=== PATIENT | female | born 1935 | race Caucasian/White ===

== ENCOUNTER 2017-08-08 10:34 | Observation (INO) ==
--- NOTE | 2017-08-08 11:16 | Emergency Department Note ---
Arrival - Arrival Chief Complaint: Shortness of Breath Stated Complaint: sob,numbess,swelling of stomach,diahrea,n/v ED Nursing Triage Note: PT C/O SHORTNESS OF BREATH AND WEAKNESS SINCE TUESDAY WITH INTERMITTENT N/V. Mode of Arrival: Wheelchair Limitations: No Limitations Source: Patient Time Seen by Provider: 08/08/17 11:12 - History of Present Illness HPI Narrative: This 82-year-old white female presents with a history of 4 days of stomach upset characterized by intense nausea and vomiting 4 days ago followed by the last several days of loose bowel movements. She denies any bright red blood, melena, or abdominal cramping with this. She does complain of increased shortness of breath, dyspnea on exertion, orthopnea, and generalized weakness. What precipitated her visit today however was left-sided numbness of the upper extremity with some cramping in the hand as well as questionable sensation of numbness of the left face. The patient has a significant cardiac history with 2 stents but denies any chest pain, diaphoresis, or palpitations in association with this. She denies any history of stroke. Currently she is in no acute distress medically at rest. Onset (ago): day(s) (Patient presents 4 days post onset of symptoms) Allergies/Adverse Reactions: Allergies Allergy/AdvReac Type Severity Reaction Status Date / Time Penicillins Allergy Severe RASH Verified 08/08/17 10:49 tape Allergy Unknown/Unable Uncoded 08/08/17 10:49 to obtain Home Medications: Home Medications Medication Instructions Recorded Confirmed Type Furosemide Tab [Lasix Tab] 20 mg PO DAILY 03/19/16 11/17/16 History Metoprolol Succinate Xl [Toprol Xl] 25 mg PO BID 03/19/16 11/17/16 History raNITIdine HCl [Ranitidine HCl] 300 mg PO BID 03/19/16 11/17/16 History Benzonatate 100 mg PO TID 11/15/16 11/17/16 History HYDROcodone/ACETAMIN 5-325 [Roy 1 tablet PO Q6H #30 tablet 11/15/16 11/17/16 Rx 5-325] Timolol Maleate [Timolol 0.5% Oph 1 drop BOTH EYES DAILY 11/15/16 11/17/16 History Soln] Albuterol Neb [Proventil Neb] 1.25 mg RESP TX RT Q4H #1 11/19/16 Rx nebulization solution Albuterol Sulfate [Ventolin HFA] 2 puff INH Q4HR #1 inhaler 11/19/16 Rx Aspirin Chew Tab 81 mg PO DAILY #30 tablet 11/19/16 Rx Codeine Phosphate/Guaifenesin 10 ml PO DIRECTED #1 liquid 11/19/16 Rx [Guaifenesin-Codeine Syrup] Levofloxacin Tab [Levaquin Tab] 500 mg PO DAILY #7 tablet 11/19/16 Rx Review of System - Review of System 12 point system: reviewed and no additional remarkable complaints except as stated - Review of System Constitutional: Present: as per HPI Respiratory: Present: as per HPI Cardiovascular: Present: as per HPI Gastrointestinal: Present: as per HPI Neurological: Present: as per HPI Medical,Surgical,& Family Hx - Medical History Cardio: History of: CAD, Hypertension, [place] (stents in 2013) Neurology: No history of: Seizures HEENT: History of: Glaucoma Endocrine: No history of: Diabetes Mellitus (NIDDM) Respiratory: History of: Bronchitis Musculoskeletal: History of: Back/Neck Problems, Degenerative Disk Disease, Musculoskeletal Problems (back surgery) No history of: Amputation Hematology: History of: Anemia - Surgical History Cardiac Surgeries: Sugical HX of: Cardiac Catheterization (STENT X2) Abdominal Surgeries: Patient denies: Abdominal Surgery Reproductive Surgeries: Surgical HX of;: Hysterectomy (1970) - Family History Family History: Reports;: Family Anesthesia Reaction (self), Family Heart Disease (both parents) - Social History Smoking Status: Never smoker Frequency of Alcohol Use: None Type of Drug Use: None Exam Physical Examination: GENERAL: Well developed, well nourished elderly white female in no acute distress. HEENT: Normocephalic. No trauma. Moist mucous membranes. EOMI. PERRLA. ENT NML NECK: Supple. No adenopathy. CARDIAC: Regular. No murmurs. Heart rate 59 CHEST: Clear to auscultation. No respiratory distress. O2 sat 99% ABDOMEN: Soft. Nontender. Hyperactive bowel sounds. EXTREMITIES: No trauma. Normal ROM. No pedal edema. SKIN: No diaphoresis. No rash. NEURO: Alert. Neuro intact. No focal deficits. Vital Signs: Vital Signs Temperature 97.9 F 08/08/17 11:32 Pulse Rate 59 L 08/08/17 11:32 Respiratory Rate 18 08/08/17 11:38 Blood Pressure 165/52 08/08/17 11:32 O2 Sat by Pulse Oximetry 99 08/08/17 10:47 Course - Reevaluation(s) Reevaluation #1: Discussed with patient the fact that she is exhibiting symptoms of congestive failure complicating her gastroenteritis which warrants admission for diuresis and monitoring. - Consultations Consultation #1: Discussed with hospitalist service who will admit for further evaluation treatment. Results - Labs CBC & BMP: 08/08/17 11:23 08/08/17 11:23 Labs: I reviewed the lab and noted the depressed hematocrit. Also noted was negative cardiac enzymes with very elevated BNP. - Impressions EKG: Sinus rhythm with first-degree AV block at heart rate of 60 but normal QRS. Nonspecific ST changes with no acute injury pattern noted. - Diagnostic Findings Procedure: CT: image reviewed by me, report reviewed by me (Head: Microvascular ischemia as well as cerebral atrophy. Chronic left occipital infarct noted) Disposition Clinical Impression: Congestive heart failure, Gastroenteritis Case discussed with: patient, patient's family Disposition: Still a Patient Condition: Stable Time of Disposition: 12:46
[2017-08-08 11:34] LABS: Basophils # 0.2 10*3/uL (0.0-0.2); Basophils % 1.6 % (0.0-0.8); Eosinophils # 0.3 10*3/uL (0.0-0.87); Eosinophils % 2.8 % (0.00-10.9); Hematocrit 28.2 VOL% (35.7-47.0); Hemoglobin 9.3 GM/DL (12.0-16.0); Immature Granulocytes % 12.8 %; Immature Granulocytes Absolute 1.21 #; Lymphocytes # 1.1 10*3/uL (1.4-4.0); Lymphocytes % 11.1 % (21.3-54.2); Mean Corpuscular Hemoglobin 30 PG (27-34); Mean Corpuscular Volume 92.2 FL (87-102); Mean Platelet Volume 12.6 FL (9.6-12.0); Monocytes # 1.1 10*3/uL (0.11-0.8); Monocytes % 11.1 % (1.7-12.7); NRBC # 0.26 10*3/uL; Neutrophils # 5.8 10*3/uL (1.4-7.4); Neutrophils % 60.6 % (38.7-73.9); Platelet Count 433 T/CUMM (130-400); Red Blood Count 3.06 MC/CUMM (3.8-5.5); Red Cell Distribution Width 23.7 % (9.3-17.3); White Blood Count 9.5 T/CUMM (4-12)
--- NOTE | 2017-08-08 11:43 | CT Report ---
Referring physician: Jose Kelley Exam: CT brain without contrast Date: 08/08/2017 Comparison: None Reason: Left-sided numbness Technique: Axial images of the head were obtained without the use of contrast. Total DLP was 1012.10 mGy*cm. Findings: No hydrocephalus or midline shift is present. There is no evidence of an acute infarction, recent intracranial hemorrhage or abnormal mass effect. Diffuse atrophy and cerebral hypodensities with probable 10 mm chronic infarct in the left occipital lobe. Arterial calcifications are noted. The osseous structures appear intact. The mastoid air cells and visualized paranasal sinuses are clear. Impression: No acute intracranial abnormality is identified. Cerebral atrophy with microvascular disease and probable chronic left occipital lobe infarct. The CT exam was performed using one or more of the following dose reduction techniques: Automated exposure control and adjustment of the mA and/or kV according to patient size. PROCEDURE INTERPRETED AT [facility] DEPARTMENT OF RADIOLOGY Final Report Signed by: Dr. Nely Smith
[2017-08-08 11:44] LABS: Apearance,Urine CLEAR (Clear); Bilirubin,Urine Negative (Negative); Blood, Urine Negative (Negative); Glucose,Urine (UA) Negative (Negative); Ketones,Urine Negative (Negative); Nitrite,Urine Negative (Negative); Protein,Urine Negative; Squamous Epithelial Cell,Urine Occasional /HPF (0-10); Urine Color Straw (Yellow); Urine Specific Gravity 1.005 (1.001-1.035); Urine Urobilinogen < 2.0 EU/DL (0.2-1.0); WBC,Urine <1 /HPF (0-6)
[2017-08-08 11:45] LABS: PT Patient Result 10.6 SECS; Partial Thromboplastin Time 30.8 SECS (0-40)
--- NOTE | 2017-08-08 11:48 | XRay Report ---
Portable chest Date: 08/08/2017 Clinical history: Shortness of breath Comparison: 11/17/2016 Technique: Portable AP sitting chest Findings: Persistent cardiomegaly with arterial calcifications. Calcified granulomata/nodes are noted with no significant change in the appearance of the lungs, mediastinum, or osseous structures. Degenerative changes are noted. Impression: Persistent cardiomegaly with chronic scarring in the lungs. PROCEDURE INTERPRETED AT [facility] DEPARTMENT OF RADIOLOGY Final Report Signed by: Dr. Nely Smith
[2017-08-08 12:07] LABS: Band Neutrophils 3 % (0-10); Elliptocytes 1+; Hypochromasia 1+; Lymphocytes 13 % (20-55); Macrocytosis 2+; Nucleated Red Blood Cells 1 (0-5); Polychromasia 1+; Segmented Neutrophils 76 % (50-85); Target Cells Slight; Total Cells Counted 100
[2017-08-08 12:08] LABS: Basophilic Stippling 1+; Giant Platelets Few; Platelet Estimate Increased
[2017-08-08] MEDS ORDERED: FUROSEMIDE 40 MG/4 ML VIAL IV STA (12:11)
[2017-08-08] MEDS ORDERED: ALBUTEROL 2.5 MG/3 ML NEB RESP TX STA (12:12)
[2017-08-08 12:16] LABS: Albumin 4.2 G/DL (3.4-5.0); Bilirubin,Total 0.8 MG/DL (0.2-1.0); Calcium 8.7 MG/DL (8.5-10.1); Total Protein 6.9 G/DL (6.4-8.3)
[2017-08-08 12:17] LABS: Osmolality,Calculated 267.5 MOS/KG (273-304); Potassium 4.9 MMOL/L (3.5-5.1)
[2017-08-08] MEDS ORDERED: ALBUTEROL 2.5 MG/3 ML NEB RESP TX ONE (12:19)
[2017-08-08] MEDS ORDERED: FUROSEMIDE 40 MG/4 ML VIAL ONE (12:27)
--- NOTE | 2017-08-08 14:05 | Order Completion Report ---
See report scanned to EMR
--- NOTE | 2017-08-08 14:30 | Hospitalist History & Physical ---
<Lolly Willingham - Last Filed: 08/08/17 13:36> Assessment and Plan - Time spent with patient Time spent with patient: Greater than 30 minutes (1) Acute on chronic systolic CHF (congestive heart failure) Status: Acute Assessment and plan: Admit - 08/08/17 CHF-(BNP 674) - continue diuretics Lasix 4o IV daily PRN duonebs repeat a.m. labs further recommendations to follow per Dr Pérez. Current Visit: No (2) SOB (shortness of breath) Status: Acute Current Visit: No (3) Dyslipidemia Status: Chronic Current Visit: No History of Present Illness Chief complaint: shortness of breath, N/V History of present illness: Ms. Ewing is a 82 year old white female w/PMHx irregular heartbeat (AFib), HTN, Cardiac Stents, Arthritis, Glaucoma, chronic back pain presented to the ED for further evaluation of shortness of breath with exertion, nausea, vomiting since Tuesday. She reports feeling bloated x3 days. She denies having early satiety. She reports purposefully loosing 20 pounds since April by dieting. She denies any abdominal tenderness. She reports this morning an episode of numbness in the middle of her left hand but it has now resolved. Denies stroke hx. She denies headaches. She denies fever, chills, cough, chest pain or tightness. IN ED: H&H 9.3 & 28.2. PLT 433. D-Dimer negative. Sodium 132, BUn 21. Glucose 109. BNP 674. Urinalysis negative for infection. CXR: persistent cardiomegaly with chronic scarring in lungs. Head CT: nothing acute; cerebral atrophy with microvascular disease and probable chronic left occipital lobe infarct. Hospital medicine consulted for admission for SOB, left hand numbness, abdominal distention, nausea, and vomiting. Start IV fluids. PRN anti-emetics, Diuretics, PRN duonebs. PCP: Dr Singh [employer] Operator: Dr Gonzalez Glaucoma: Dr Carlisle After discussion with Dr Kelley in ED and Dr Pérez with Hospital Medicine, it was agreed to admit patient for further evaluation. Home medications to be reviewed and reconciliation to follow. Home Medications Medication Instructions Recorded Confirmed Type Furosemide Tab [Lasix Tab] 40 mg PO DAILY 03/19/16 08/08/17 History Metoprolol Succinate Xl [Toprol Xl] 25 mg PO BID 03/19/16 08/08/17 History raNITIdine HCl [Ranitidine HCl] 300 mg PO BID 03/19/16 08/08/17 History Timolol Maleate [Timolol 0.5% Oph 1 drop BOTH EYES DAILY 11/15/16 08/08/17 History Soln] Aspirin Chew Tab 81 mg PO DAILY #30 tablet 11/19/16 08/08/17 Rx Apixaban [Eliquis] 2.5 mg PO BID 08/08/17 08/08/17 History Lisinopril 20 mg PO BID 08/08/17 08/08/17 History Sotalol HCl [Sotalol] 80 mg PO BID 08/08/17 08/08/17 History Allergies Allergy/AdvReac Type Severity Reaction Status Date / Time Penicillins Allergy Severe RASH Verified 08/08/17 10:49 tape Allergy Unknown/Unable Uncoded 08/08/17 10:49 to obtain Medical,Surgical,& Family Hx - Medical History Cardio: History of: CAD, Hypertension, [place] (stents in 2013) Neurology: No history of: Seizures HEENT: History of: Glaucoma Endocrine: No history of: Diabetes Mellitus (NIDDM) Respiratory: History of: Bronchitis Musculoskeletal: History of: Back/Neck Problems, Degenerative Disk Disease, Musculoskeletal Problems (back surgery) No history of: Amputation Hematology: History of: Anemia - Surgical History Cardiac Surgeries: Sugical HX of: Cardiac Catheterization (STENT X2) Abdominal Surgeries: Patient denies: Abdominal Surgery Reproductive Surgeries: Surgical HX of;: Hysterectomy (1971) - Family History Family History: Reports;: Family Anesthesia Reaction (self), Family Heart Disease (both parents) - Social History Smoking Status: Never smoker Frequency of Alcohol Use: None Type of Drug Use: None Marital Status: Lives With:: Spouse Functional capacity: independent ambulation 12 point system: reviewed and no additional remarkable complaints except as stated - Constitutional Constitutional: Present: fatigue, weight loss (pur). Absent: chills, fever(s), headache(s) - Cardiovascular Cardiovascular: Present: dyspnea on exertion. Absent: chest pain at rest, chest pain with activity - Respiratory Respiratory: Present: dyspnea on exertion. Absent: cough - Gastrointestinal Gastrointestinal: Present: loose stools. Absent: abdominal pain, coffee ground emesis - Genitourinary Genitourinary: Absent: difficulty urinating, dysuria - Neurological Neurological: Present: numbness (middle of hand that has resolved upon time of exam). Absent: abnormal speech, frequent falls Exam - Constitutional Vitals: Period Temp Pulse Resp BP Sys/Alves Pulse Ox Last 24 Hr 97.9 F-97.9 F 59-59 16-18 165-165/52-52 99 General appearance: normal weight, no acute distress - Head Head exam: Present: normal inspection - Eye Eye exam: Present: EOMI Pupils: Present: SHANNA - Neck Neck exam: Present: normal inspection - Respiratory Respiratory exam: Present: clear to auscultation bilaterally. Absent: rales, rhonchi, stridor, wheezes - Cardiovascular Cardiovascular exam: Present: regular rate and rhythm - GI/Abdominal GI/Abdominal exam: Present: normal bowel sounds, distended, soft. Absent: firm , tenderness, rebound - Extremities Exam Extremities exam: Present: normal inspection, full ROM. Absent: edema - Neurological Exam Neurological exam: Present: alert, oriented X3, CN II-XII intact - Psychiatric Psychiatric exam: Present: normal affect, normal mood. Absent: agitated, anxious - Skin Skin exam: Present: normal color, warm, dry Results - Labs CBC & BMP: 08/08/17 11:23 08/08/17 11:23 Lab Results: I have reviewed the past 24 hour labs - Diagnostic Findings Procedure: Chest x-ray: report reviewed by me (persistent cardiomegaly with chronic scarring in the lungs), CT: report reviewed by me (Head: NO Acute intracranial abnormality, cerebral atrophy with microvascular disease and probable chronic left occipital lobe infarct) <Grace Pérez - Last Filed: 08/08/17 18:32> History of Present Illness History of present illness: Patient seen and examined independently of HEMATOLOGIST ONCOLOGIST Willingham, agree with history, assessment and plan as documented. Presents with sob and abdominal swelling. Reports that this is usually where her chf swelling is. Will start IV lasix. Exam - Constitutional Vitals: Period Temp Pulse Resp BP Sys/Alves Pulse Ox Last 24 Hr 97.3 F-98.1 F 56-61 16-19 118-165/49-60 96-100 Results - Labs CBC & BMP: 08/08/17 11:23 08/08/17 11:23
[2017-08-08] MEDS ORDERED: MAGNESIUM SULF RIDER 2 GM in PREMIX 1 EACH IV PRN (14:56)
[2017-08-08] MEDS ORDERED: MAGNESIUM SULF RIDER 4 GM in PREMIX 1 EACH IV PRN (14:56)
[2017-08-08] MEDS ORDERED: ALBUTEROL/IPRATROPIUM 3 ML NEB RESP TX PRN (18:10)
[2017-08-08] MEDS: LISINOPRIL 20 MG TABLET PO SCH (21:26)
[2017-08-08] MEDS: APIXABAN 2.5 MG TABLET PO SCH (21:26)
[2017-08-08] MEDS: SOTALOL 80 MG TABLET PO SCH (21:30)
[2017-08-09 06:59] LABS: Basophils # 0.1 10*3/uL (0.0-0.2); Basophils % 2.1 % (0.0-0.8); Eosinophils # 0.2 10*3/uL (0.0-0.87); Eosinophils % 2.7 % (0.00-10.9); Hematocrit 25.9 VOL% (35.7-47.0); Hemoglobin 8.6 GM/DL (12.0-16.0); Immature Granulocytes % 12.1 %; Immature Granulocytes Absolute 0.76 #; Lymphocytes # 0.7 10*3/uL (1.4-4.0); Lymphocytes % 10.7 % (21.3-54.2); Mean Corpuscular HGB Conc 33.2 GM/DL (32-36); Mean Corpuscular Hemoglobin 31 PG (27-34); Mean Corpuscular Volume 92.5 FL (87-102); Mean Platelet Volume 12.3 FL (9.6-12.0); Monocytes # 0.7 10*3/uL (0.11-0.8); Monocytes % 10.8 % (1.7-12.7); NRBC # 0.19 10*3/uL; Neutrophils # 3.9 10*3/uL (1.4-7.4); Neutrophils % 61.6 % (38.7-73.9); Platelet Count 349 T/CUMM (130-400); Red Cell Distribution Width 23.7 % (9.3-17.3); White Blood Count 6.3 T/CUMM (4-12)
--- NOTE | 2017-08-09 07:19 | Order Completion Report ---
See report scanned to EMR
[2017-08-09 07:40] LABS: Calcium 8.3 MG/DL (8.5-10.1); Potassium 4.4 MMOL/L (3.5-5.1)
[2017-08-09 07:55] LABS: Anisocytosis 2+; Band Neutrophils 30 % (0-10); Eosinophils 2 % (0-10); Lymphocytes 10 % (20-55); Metamyelocytes 2 %; Poikilocytosis 3+; Segmented Neutrophils 51 % (50-85); Total Cells Counted 100
[2017-08-09 07:57] LABS: Ovalocytes 1+
[2017-08-09] MEDS: APIXABAN 2.5 MG TABLET PO SCH (08:56)
[2017-08-09] MEDS: LISINOPRIL 20 MG TABLET PO SCH (08:56)
[2017-08-09] MEDS: SOTALOL 80 MG TABLET PO SCH (08:56)
[2017-08-09] MEDS: FUROSEMIDE 40 MG/4 ML VIAL IV SCH ×2 (08:57→15:46)
[2017-08-09] MEDS ORDERED: TIMOLOL 0.5% OPH SOLN 5 ML BOTTLE BOTH EYES SCH (09:00)
[2017-08-09] MEDS ORDERED: ASPIRIN CHEW 81 MG TABLET PO SCH (09:00)
[2017-08-09 11:47] VITALS: BP 106/42
--- NOTE | 2017-08-09 13:29 | Cardiology Consult Note ---
History of Present Illness - Data of Consult Patient: known to practice within the last 3 years - Consult Narrative History of present illness: Cardiology consult 82-year-old woman with 1 week of diarrhea with nausea and and vomiting twice on Tuesday , was referred by Dr. Devine to the [facility] ER for evaluation yesterday after having some numbness in her left arm and increasing shortness of breath. Patient's daughter Virgen Johnson called the office twice this morning requesting cardiac consultation . It sounds like she had a viral gastroenteritis. Her diarrhea has resolved. No further vomiting. She ate most of her breakfast and lunch without difficulty. Patient states she wants to go home. Blood pressure is 130/74 in the right arm by me. Her O2 sat is 95% on room air. CT of the head was negative for acute event but did show old left occipital infarct. EKG shows sinus rhythm with old anterior TN ST-T wave changes. Chest x-ray shows cardiomegaly with chronic interstitial changes. The BNP level is elevated 674. She denies chest pain. The patient has a documented ischemic cardiomyopathy and status post anterior infarction with mid LAD stent and proximal circumflex stent May 07, [address] Ramirez at [facility]. She is seen in the office with her daughter Carri on a regular basis. The patient has lost 27 pounds since mid March. She weighed 144 pounds when I last saw in the office July 21, 2017. Weight today 137 pounds. Patient states that she has been dieting and trying to lose weight. She is very hard of hearing but quite pleasant. She has a history of atrial fibrillation March 2017 converted with sotalol 80 mg twice daily Eliquis 2.5 mg twice daily. She does have GE reflux symptoms and takes ranitidine 300 mg daily. She has dinner around 5 PM and avoid bedtime snacks. Echo Doppler showed ejection fraction of 55% with mild LVH, moderate biatrial enlargement with aortic valve sclerosis with 1+ AI, mild 2+ MR normal RV function severe TR PA pressure 70 with no effusion. She is a lifetime non-smoker and nondrinker she walks with a walker at all times. The patient has chronic dyspnea and easy fatigability. Denies chest pain syncope or leg edema. She does have GE reflux symptoms. She sleeps on one pillow and has nocturia at least twice every night. She does have arthritic pain in her neck back and hands. Blood pressure 130/74 pulse is 82 and regular. O2 sat 95% room air. Bilateral arcus. Very hard of hearing. Soft bladder carotid bruits. Decreased breath sounds but clear. No wheezing or rhonchi. Rhythm is regular. No murmur or gallop. Abdomen mildly distended but nontender bowel sounds are active. Femoral pulses 2+ without bruits pulses 2+ no edema Impression Probable viral gastroenteritis which has resolved. Patient states she is eating without difficulty and denies nausea or diarrhea. No vomiting since Tuesday morning. Her volume status is good. Sodium 136 BUN 19 creatinine 0.80. Ischemic cardio myopathy status post anterior infarction with mid LAD stent and proximal circumflex stent May 07, [address] Ramirez at [facility] Status post rectus sheath hematoma October 2016 requiring 2 unit transfusion New onset atrial fibrillation in the office April 12, 2017 converted to sinus with sotalol 80 mg twice daily Lifetime non-smoker Chronic dyspnea Unsteady gait Echo Doppler April 12, 2017 ejection fraction 55% with concentric LVH, moderate atrial enlargement, mild 2+ MR, aortic valve sclerosis, normal RV function severe TR PA pressure 70 5 feet 3 inches tall, 137 pounds. She weighed 144 pounds when I saw her in the office July 21, 2017 and she weight 165 pounds when I saw her April 20, 2013 Chest x-ray showed cardiomegaly with BNP level 674. Plan Feed patient and follow abdominal exam Ambulate with walker Restart Lasix 40 mg daily Office visit with EKG 1 week Home tomorrow if stable, if she will stay. Findings and plan discussed with patient and with her daughter Virgen Johnson with nurse present for the entire discussion. CC: Shraddha Iqbal MD - Home Medications and Allergies Home Medications: Home Medications Medication Instructions Recorded Confirmed Type Furosemide Tab [Lasix Tab] 40 mg PO DAILY 03/19/16 08/08/17 History Metoprolol Succinate Xl [Toprol Xl] 25 mg PO BID 03/19/16 08/08/17 History raNITIdine HCl [Ranitidine HCl] 300 mg PO BID 03/19/16 08/08/17 History Timolol Maleate [Timolol 0.5% Oph 1 drop BOTH EYES DAILY 11/15/16 08/08/17 History Soln] Aspirin Chew Tab 81 mg PO DAILY #30 tablet 11/19/16 08/08/17 Rx Apixaban [Eliquis] 2.5 mg PO BID 08/08/17 08/08/17 History Lisinopril 20 mg PO BID 08/08/17 08/08/17 History Sotalol HCl [Sotalol] 80 mg PO BID 08/08/17 08/08/17 History Allergies/Adverse Reactions: Allergies Allergy/AdvReac Type Severity Reaction Status Date / Time Penicillins Allergy Severe RASH Verified 08/08/17 10:49 tape Allergy Unknown/Unable Uncoded 08/08/17 10:49 to obtain Medical,Surgical,& Family Hx - Medical History Cardio: History of: CHF, CAD, Hypertension, [place] (stents in 2013) Neurology: No history of: Seizures HEENT: History of: Glaucoma Endocrine: No history of: Diabetes Mellitus (NIDDM) Respiratory: History of: Bronchitis Musculoskeletal: History of: Back/Neck Problems, Degenerative Disk Disease, Musculoskeletal Problems (back surgery) No history of: Amputation Hematology: History of: Anemia - Surgical History Cardiac Surgeries: Sugical HX of: Cardiac Catheterization (STENT X2) Abdominal Surgeries: Patient denies: Abdominal Surgery Reproductive Surgeries: Surgical HX of;: Hysterectomy (1971) - Family History Family History: Reports;: Family Anesthesia Reaction (self), Family Heart Disease (both parents) - Social History Smoking Status: Never smoker Frequency of Alcohol Use: None Type of Drug Use: None Physical Examination Vital Signs Temp Pulse Resp BP Pulse Ox 97.9 F 59 L 16 165/52 99 08/08/17 10:47 08/08/17 10:47 08/08/17 10:47 08/08/17 10:47 08/08/17 10:47 Result/EKG - Labs CBC & BMP: 08/09/17 05:38 08/09/17 05:38 Labs: Laboratory Results - last 24 hr 08/08/17 08/08/17 08/08/17 11:53 18:03 22:05 WBC RBC Hgb Hct MCV MCH MCHC RDW Plt Count MPV Neut % (Auto) Lymph % (Auto) [place] % (Auto) Eos % (Auto) Baso % (Auto) Neut # (Auto) Lymph # (Auto) [place] # (Auto) Eos # (Auto) Baso # (Auto) Total Counted Immature Gran % Nucleated RBC % Immature Gran # Segmented Neutrophils Band Neutrophils Lymphocytes Monocytes Eosinophils Basophils Metamyelocytes Nucleated RBCs # Immature Plt Fraction Poikilocytosis Anisocytosis Ovalocytes Sodium Potassium Chloride Carbon Dioxide Anion Gap BUN Creatinine GFR Calculation BUN/Creatinine Ratio Glucose Calculated Osmolality Calcium Magnesium Troponin I < 0.015 < 0.015 < 0.015 08/09/17 08/09/17 08/09/17 05:36 05:38 05:38 WBC 6.3 D RBC 2.80 L Hgb 8.6 L Hct 25.9 L MCV 92.5 MCH 31 MCHC 33.2 RDW 23.7 H Plt Count 349 MPV 12.3 H Neut % (Auto) 61.6 Lymph % (Auto) 10.7 L [place] % (Auto) 10.8 Eos % (Auto) 2.7 Baso % (Auto) 2.1 H Neut # (Auto) 3.9 Lymph # (Auto) 0.7 L [place] # (Auto) 0.7 Eos # (Auto) 0.2 Baso # (Auto) 0.1 Total Counted 100 Immature Gran % 12.1 Nucleated RBC % 3.0 Immature Gran # 0.76 Segmented Neutrophils 51 Band Neutrophils 30 H Lymphocytes 10 L Monocytes 4 Eosinophils 2 Basophils 1.0 H Metamyelocytes 2 Nucleated RBCs # 0.19 Immature Plt Fraction 0.0 Poikilocytosis 3+ Anisocytosis 2+ Ovalocytes 1+ Sodium 136 Potassium 4.4 Chloride 99 Carbon Dioxide 29 Anion Gap 12.4 BUN 19 H Creatinine 0.80 GFR Calculation 65 BUN/Creatinine Ratio 23.00 H Glucose 92 Calculated Osmolality 273.0 Calcium 8.3 L Magnesium Troponin I < 0.015 08/09/17 05:38 WBC RBC Hgb Hct MCV MCH MCHC RDW Plt Count MPV Neut % (Auto) Lymph % (Auto) [place] % (Auto) Eos % (Auto) Baso % (Auto) Neut # (Auto) Lymph # (Auto) [place] # (Auto) Eos # (Auto) Baso # (Auto) Total Counted Immature Gran % Nucleated RBC % Immature Gran # Segmented Neutrophils Band Neutrophils Lymphocytes Monocytes Eosinophils Basophils Metamyelocytes Nucleated RBCs # Immature Plt Fraction Poikilocytosis Anisocytosis Ovalocytes Sodium Potassium Chloride Carbon Dioxide Anion Gap BUN Creatinine GFR Calculation BUN/Creatinine Ratio Glucose Calculated Osmolality Calcium Magnesium 2.7 H Troponin I Quality Measures - Stroke Symptom Onset Unknown: No
--- NOTE | 2017-08-09 13:37 | Discharge Summary ---
Hospital Course - Hospital Course Hospital Course: 82 year old white female w/PMHx paroxysmal AFib, HTN, CAD with cardiac Stents, Arthritis, Glaucoma, chronic back pain presented to the ED for further evaluation of shortness of breath with exertion, nausea, vomiting. She reports feeling bloated x3 days. She denied having early satiety. She reports purposefully loosing 20 pounds since April by dieting. She denied any abdominal tenderness. She was admitted to the hospitalist service. Her nausea vomiting and diarrhea resolved which was felt to be due to a viral gastroenteritis. She was also found to have acute on chronic diastolic congestive heart failure, received IV Lasix for that. Today she is feeling much better and reported breathing is so much improved that she and her family requested a discharge home. Follow with primary care physician as an Dr. 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 Total discharge time 20 minutes. - Time spent with patient Time with patient DS: Less than 30 minutes Diagnosis - Discharge Diagnosis (1) SOB (shortness of breath) Status: Resolved Discharge Plan - Discharge Data Condition at Discharge: Stable Discharge Diet: low salt diet Activity: increase activity as tolerated Hygiene: no restrictions Weight Bearing at Discharge: full weight bearing Contact your physician if you experience:: Shortness of breath - Discharge Medications Continue Metoprolol Succinate Xl [Toprol Xl] 25 mg PO BID Furosemide Tab [Lasix Tab] 40 mg PO DAILY raNITIdine HCl [Ranitidine HCl] 300 mg PO BID Timolol Maleate [Timolol 0.5% Oph Soln] 1 drop BOTH EYES DAILY Apixaban [Eliquis] 2.5 mg PO BID Aspirin Chew Tab 81 mg PO DAILY #30 tablet Sotalol HCl [Sotalol] 80 mg PO BID Lisinopril 20 mg PO BID - Follow Up or Referral Follow Up: No PCP,. [Primary Care Provider] - 1 Week - Forms/Instructions Exam - Constitutional Vitals: Period Temp Pulse Resp BP Sys/Alves Pulse Ox Last 24 Hr 97.2 F-98.3 F 56-72 16-20 102-152/42-73 93-100 Exam: General: No Acute Distress HEENT: [Normocephalic, atraumatic Neck: Supple, No JVD Abd: soft, NT, Non-distended, BS + Ext: Some edema] Skin: No purpura, bruising or rash Rheumatologic: No Joint deformities Neurologic: Awake and alert Discharge Results Procedures and tests throughout hospitalization: Pending Orders 08/08/17 11:23 Blood Culture Stat 08/10/17 04:00 Basic Metabolic Panel IN AM 08/11/17 04:00 Basic Metabolic Panel IN AM Labs on day of discharge: Labs from last 24 hours 08/09/17 08/09/17 08/09/17 05:38 05:38 05:38 WBC 6.3 D RBC 2.80 L Hgb 8.6 L Hct 25.9 L MCV 92.5 MCH 31 MCHC 33.2 RDW 23.7 H Plt Count 349 MPV 12.3 H Neut % (Auto) 61.6 Lymph % (Auto) 10.7 L Loving % (Auto) 10.8 Eos % (Auto) 2.7 Baso % (Auto) 2.1 H Neut # (Auto) 3.9 Lymph # (Auto) 0.7 L Loving # (Auto) 0.7 Eos # (Auto) 0.2 Baso # (Auto) 0.1 Total Counted 100 Immature Gran % 12.1 Nucleated RBC % 3.0 Immature Gran # 0.76 Segmented Neutrophils 51 Band Neutrophils 30 H Lymphocytes 10 L Monocytes 4 Eosinophils 2 Basophils 1.0 H Metamyelocytes 2 Nucleated RBCs # 0.19 Immature Plt Fraction 0.0 Poikilocytosis 3+ Anisocytosis 2+ Ovalocytes 1+ Sodium 136 Potassium 4.4 Chloride 99 Carbon Dioxide 29 Anion Gap 12.4 BUN 19 H Creatinine 0.80 GFR Calculation 65 BUN/Creatinine Ratio 23.00 H Glucose 92 Calculated Osmolality 273.0 Calcium 8.3 L Magnesium 2.7 H Troponin I 08/09/17 08/08/17 08/08/17 05:36 22:05 18:03 WBC RBC Hgb Hct MCV MCH MCHC RDW Plt Count MPV Neut % (Auto) Lymph % (Auto) Loving % (Auto) Eos % (Auto) Baso % (Auto) Neut # (Auto) Lymph # (Auto) Loving # (Auto) Eos # (Auto) Baso # (Auto) Total Counted Immature Gran % Nucleated RBC % Immature Gran # Segmented Neutrophils Band Neutrophils Lymphocytes Monocytes Eosinophils Basophils Metamyelocytes Nucleated RBCs # Immature Plt Fraction Poikilocytosis Anisocytosis Ovalocytes Sodium Potassium Chloride Carbon Dioxide Anion Gap BUN Creatinine GFR Calculation BUN/Creatinine Ratio Glucose Calculated Osmolality Calcium Magnesium Troponin I < 0.015 < 0.015 < 0.015 08/08/17 11:53 WBC RBC Hgb Hct MCV MCH MCHC RDW Plt Count MPV Neut % (Auto) Lymph % (Auto) Loving % (Auto) Eos % (Auto) Baso % (Auto) Neut # (Auto) Lymph # (Auto) Loving # (Auto) Eos # (Auto) Baso # (Auto) Total Counted Immature Gran % Nucleated RBC % Immature Gran # Segmented Neutrophils Band Neutrophils Lymphocytes Monocytes Eosinophils Basophils Metamyelocytes Nucleated RBCs # Immature Plt Fraction Poikilocytosis Anisocytosis Ovalocytes Sodium Potassium Chloride Carbon Dioxide Anion Gap BUN Creatinine GFR Calculation BUN/Creatinine Ratio Glucose Calculated Osmolality Calcium Magnesium Troponin I < 0.015 Preliminary micro results at discharge 08/08/17 11:23 Blood Culture - Preliminary Blood No growth at 1 day 08/08/17 11:23 Blood Culture - Preliminary Blood No growth at 1 day DS: Provider Date of admission: 08/08/17 12:55 Primary care physician: . No PCP Attending physician on admission: Grace Pérez MD Discharging clinician: Shraddha Iqbal MD
== END 2017-08-09 16:23 | disposition home or self-care (01) ==
LOC: N.ED 10:34 → N.EDINP 10:34 → SUATTDRO 12:55 → N.EDINP 14:28 → N.2E 14:37
PROVIDERS: ADMIT Internal Medicine; ATTEND Internal Medicine

== ENCOUNTER 2018-11-07 17:00 | Inpatient (IN) ==
[2018-11-07 19:03] LABS: Basophils # 0.6 10*3/uL (0.0-0.2); Basophils % 3.8 % (0.0-0.8); Eosinophils # 0.4 10*3/uL (0.0-0.87); Eosinophils % 2.5 % (0.00-10.9); Hematocrit 35.5 VOL% (35.7-47.0); Hemoglobin 11.6 GM/DL (12.0-16.0); Immature Granulocytes % 15.4 %; Lymphocytes # 1.6 10*3/uL (1.4-4.0); Lymphocytes % 10.2 % (21.3-54.2); Mean Corpuscular HGB Conc 32.7 GM/DL (32-36); Mean Corpuscular Hemoglobin 29 PG (27-34); Mean Corpuscular Volume 90.1 FL (87-102); Mean Platelet Volume 12.3 FL (9.6-12.0); Monocytes # 1.5 10*3/uL (0.11-0.8); Monocytes % 9.7 % (1.7-12.7); NRBC # 0.52 10*3/uL; Neutrophils # 9.1 10*3/uL (1.4-7.4); Neutrophils % 58.4 % (38.7-73.9); Platelet Count 471 T/CUMM (130-400); Red Blood Count 3.94 MC/CUMM (3.8-5.5); Red Cell Distribution Width 23.5 % (9.3-17.3); White Blood Count 15.6 T/CUMM (4-12)
[2018-11-07 19:18] LABS: INR 1.1; PT Patient Result 12.2 SECS
[2018-11-07 19:28] LABS: Albumin 4.1 G/DL (3.4-5.0); Bilirubin,Total 0.6 MG/DL (0.2-1.0); Osmolality,Calculated 270.6 MOS/KG (273-304)
[2018-11-07 19:33] LABS: Potassium 6.1 MMOL/L (3.5-5.1)
[2018-11-07 19:37] LABS: Apearance,Urine CLEAR (Clear); Bilirubin,Urine Negative (Negative); Blood, Urine Negative (Negative); Glucose,Urine (UA) Negative (Negative); Hyaline Casts,Urine 7 /LPF (0-3); Ketones,Urine Negative (Negative); Mucus,Urine Occasional /LPF (Occasional); Nitrite,Urine Negative (Negative); Protein,Urine Negative; RBC,Urine 2 /HPF (0-4); Squamous Epithelial Cell,Urine Occasional /HPF (0-10); Urine Color Straw (Yellow); Urine Specific Gravity 1.006 (1.001-1.035); Urine Urobilinogen < 2.0 EU/DL (0.2-1.0); WBC,Urine <1 /HPF (0-6)
[2018-11-07] MEDS ORDERED: SODIUM POLYSTYRENE SULFATE 15 GM/60 ML BOTTLE PO STA (19:41)
[2018-11-07] MEDS ORDERED: FUROSEMIDE 40 MG/4 ML VIAL IV ONE (20:00)
[2018-11-07] MEDS ORDERED: NIFEdipine 10 MG CAPSULE PO PRN (20:01)
[2018-11-07] MEDS ORDERED: SODIUM CHLORIDE 0.9% 500 ML IV STA (20:01)
[2018-11-07] MEDS ORDERED: FUROSEMIDE 40 MG/4 ML VIAL ONE (20:17)
[2018-11-07] MEDS ORDERED: ONDANSETRON 4 MG/2 ML VIAL IV PRN (21:19)
[2018-11-07] MEDS ORDERED: ACETAMINOPHEN 325 MG TABLET PO PRN (21:19)
[2018-11-07 21:45] LABS: Band Neutrophils 1 % (0-10); Eosinophils 2 % (0-10); Lymphocytes 14 % (20-55); Myelocytes 2 %; Nucleated Red Blood Cells 7 (0-5); Segmented Neutrophils 69 % (50-85); Total Cells Counted 100
[2018-11-07 21:46] LABS: Anisocytosis 1+
[2018-11-07 21:51] LABS: Tear Drop Cells 1+
[2018-11-07 21:52] LABS: Ovalocytes Slight; Polychromasia Few
[2018-11-07 22:00] LABS: Poikilocytosis 2+
[2018-11-07 22:05] LABS: Hypochromasia Slight
[2018-11-07 22:06] LABS: Platelet Estimate Increased
[2018-11-07] MEDS: SOTALOL 80 MG TABLET PO SCH (22:50)
[2018-11-07] MEDS: APIXABAN 2.5 MG TABLET PO SCH (22:51)
[2018-11-07] MEDS: SODIUM CHLORIDE 0.9% 1,000 ML IV SCH (22:51)
[2018-11-08] MEDS: SODIUM CHLORIDE 0.9% 1,000 ML IV SCH ×2 (06:33→16:41)
[2018-11-08 07:12] LABS: Calcium 7.7 MG/DL (8.5-10.1); Osmolality,Calculated 283.4 MOS/KG (273-304); Potassium 4.1 MMOL/L (3.5-5.1)
[2018-11-08] MEDS: APIXABAN 2.5 MG TABLET PO SCH ×2 (08:55→21:30)
[2018-11-08] MEDS: SOTALOL 80 MG TABLET PO SCH ×2 (08:55→21:30)
[2018-11-08] MEDS: ASPIRIN CHEW 81 MG TABLET PO SCH (08:55)
[2018-11-08] MEDS: FAMOTIDINE 20 MG TABLET PO SCH (08:55)
[2018-11-08] MEDS: TIMOLOL 0.5% OPH SOLN 5 ML BOTTLE BOTH EYES SCH (08:57)
[2018-11-08] MEDS: FUROSEMIDE 40 MG TABLET PO SCH (16:41)
[2018-11-08] MEDS ORDERED: CHOLESTYRAMINE 4 GM PACK PO ONE (22:00)
[2018-11-09] MEDS: SODIUM CHLORIDE 0.9% 1,000 ML IV SCH ×3 (00:07→07:34)
[2018-11-09 04:51] LABS: Calcium 7.8 MG/DL (8.5-10.1); Potassium 4.4 MMOL/L (3.5-5.1)
[2018-11-09] MEDS: FUROSEMIDE 40 MG TABLET PO SCH (09:35)
[2018-11-09] MEDS: ASPIRIN CHEW 81 MG TABLET PO SCH (09:35)
[2018-11-09] MEDS: APIXABAN 2.5 MG TABLET PO SCH (09:35)
[2018-11-09] MEDS: FAMOTIDINE 20 MG TABLET PO SCH (09:35)
[2018-11-09] MEDS: SOTALOL 80 MG TABLET PO SCH (09:35)
[2018-11-09] MEDS: TIMOLOL 0.5% OPH SOLN 5 ML BOTTLE BOTH EYES SCH (09:36)
[2018-11-09 12:39] VITALS: BP 118/85
== END 2018-11-09 13:30 | disposition home or self-care (01) | DRG 683 ==
LOC: SUPCPDRO → N.ED 17:00 → SUATTDRO 19:54 → N.EDINP 19:54 → N.TELES 20:34
PROVIDERS: ADMIT Internal Medicine; ATTEND Internal Medicine

== ENCOUNTER 2019-04-14 14:25 | Inpatient (IN) ==
[2019-04-14 15:18] LABS: Basophils # 0.1 10*3/uL (0.0-0.2); Basophils % 1.7 % (0.0-0.8); Eosinophils # 0.1 10*3/uL (0.0-0.87); Eosinophils % 1.2 % (0.00-10.9); Hematocrit 33.5 VOL% (35.7-47.0); Hemoglobin 10.4 GM/DL (12.0-16.0); Immature Granulocytes % 16.2 %; Immature Granulocytes Absolute 0.84 #; Lymphocytes # 0.3 10*3/uL (1.4-4.0); Lymphocytes % 5.4 % (21.3-54.2); Mean Corpuscular Volume 85.7 FL (87-102); Monocytes % 9.5 % (1.7-12.7); NRBC # 0.21 10*3/uL; Platelet Count 241 T/CUMM (130-400); Red Blood Count 3.91 MC/CUMM (3.8-5.5); Red Cell Distribution Width 23.2 % (9.3-17.3); White Blood Count 5.2 T/CUMM (4-12)
[2019-04-14 15:33] LABS: Albumin 2.7 G/DL (3.4-5.0); Bilirubin,Total 2.1 MG/DL (0.2-1.0); Calcium 8.3 MG/DL (8.5-10.1); Osmolality,Calculated 293.7 MOS/KG (273-304)
[2019-04-14 15:39] LABS: Apearance,Urine CLEAR (Clear); Bilirubin,Urine Negative (Negative); Blood, Urine Negative (Negative); Glucose,Urine (UA) Negative (Negative); Hyaline Casts,Urine 21 /LPF (0-3); Ketones,Urine Negative (Negative); Nitrite,Urine Negative (Negative); Protein,Urine Negative; Squamous Epithelial Cell,Urine Occasional /HPF (0-10); Urine Color Yellow (Yellow); Urine Specific Gravity 1.008 (1.001-1.035); Urine Urobilinogen < 2.0 EU/DL (0.2-1.0); WBC,Urine <1 /HPF (0-6)
[2019-04-14 15:48] LABS: Anisocytosis 1+; Band Neutrophils 3 % (0-10); Eosinophils 2 % (0-10); Lymphocytes 7 % (20-55); Platelet Estimate Normal; Segmented Neutrophils 77 % (50-85); Tear Drop Cells 1+; Total Cells Counted 100
[2019-04-14 15:49] LABS: Hypochromasia Slight; Ovalocytes 1+; Poikilocytosis 1+; Polychromasia Few
[2019-04-14] MEDS ORDERED: fentaNYL 100 MCG/2 ML VIAL IV STA (16:15)
[2019-04-14] MEDS ORDERED: ONDANSETRON 4 MG/2 ML VIAL IV STA (16:16)
[2019-04-14] MEDS ORDERED: NOREPINEPHRINE 4 MG/4 ML VIAL IV ONE (16:26)
[2019-04-14] MEDS: NOREPINEPHRINE 16 MG in SODIUM CHLORIDE 0.9% 234 ML IV PRN (16:37)
[2019-04-14] MEDS ORDERED: CIPROFLOXACIN INJ 400 MG in PREMIX 1 EACH IV STA (16:42)
[2019-04-14] MEDS ORDERED: metroNIDAZOLE INJ 500 MG in PREMIX 1 EACH IV STA (16:42)
[2019-04-14 17:04] LABS: INR 1.3; PT Patient Result 14.6 SECS; Partial Thromboplastin Time 37.2 SECS (0-40)
[2019-04-14] MEDS ORDERED: LACTATED RINGERS 1,000 ML IV ONE (17:16)
[2019-04-14] MEDS ORDERED: MEROPENEM 1,000 MG in SODIUM CHLORIDE 0.9% 100 ML IV STA (17:17)
[2019-04-14] MEDS ORDERED: SODIUM CHLORIDE 0.9% 1,000 ML IV PRN (19:44)
[2019-04-14] MEDS ORDERED: MICROFIBRILLAR COLLAGEN POWDER 1 GM CAN TOP ONE ×2 (19:50→19:53)
[2019-04-14 20:00] LABS: ABG Base Excess -11.6 MMOL/L (-2.5-2.5); ABG HCO3 15.1 MMOL/L (20-26); ABG Oxygen Saturation 99.6 % (95-100); ABG PCO2 31.8 MM HG (35-48); ABG PH 7.266 (7.35-7.45); ABG TCO2 13.9 MMOL/L (23-27)
[2019-04-14 20:02] LABS: Basophils # 0.2 10*3/uL (0.0-0.2); Basophils % 1.2 % (0.0-0.8); Eosinophils # 0.2 10*3/uL (0.0-0.87); Hematocrit 20.5 VOL% (35.7-47.0); Immature Granulocytes % 11.4 %; Immature Granulocytes Absolute 1.89 #; Lymphocytes # 2.3 10*3/uL (1.4-4.0); Mean Corpuscular HGB Conc 29.8 GM/DL (32-36); Mean Corpuscular Volume 89.9 FL (87-102); Monocytes % 14.1 % (1.7-12.7); NRBC # 1.12 10*3/uL; Neutrophils % 58.3 % (38.7-73.9); Platelet Count 239 T/CUMM (130-400); Red Blood Count 2.28 MC/CUMM (3.8-5.5); Red Cell Distribution Width 23.8 % (9.3-17.3); White Blood Count 16.5 T/CUMM (4-12)
[2019-04-14 20:06] LABS: Hemoglobin 6.1 GM/DL (12.0-16.0)
[2019-04-14] MEDS ORDERED: PROPOFOL 1,000 MG/100 ML BOTTLE IV ONE (20:15)
[2019-04-14 20:20] LABS: Albumin 1.8 G/DL (3.4-5.0); Bilirubin,Total 1.7 MG/DL (0.2-1.0); Calcium 8.9 MG/DL (8.5-10.1); Osmolality,Calculated 297.1 MOS/KG (273-304); Total Protein 3.7 G/DL (6.4-8.3)
[2019-04-14 20:25] LABS: INR 1.7; PT Patient Result 18.3 SECS
[2019-04-14] MEDS ORDERED: CALCIUM CHLORIDE 1,000 MG/10 ML VIAL IV ONE (20:36)
[2019-04-14] MEDS ORDERED: PHENYLEPHRINE 1 MG/10 ML SYRINGE IV ONE (20:36)
[2019-04-14] MEDS ORDERED: ETOMIDATE 40 MG/20 ML VIAL IV ONE (20:36)
[2019-04-14] MEDS ORDERED: MIDAZOLAM 2 MG/2 ML VIAL ONE (20:36)
[2019-04-14] MEDS ORDERED: ALBUMIN 5% 12.5 GM/250 ML VIAL IV ONE (20:36)
[2019-04-14] MEDS ORDERED: EPINEPHrine 1 MG/10 ML SYRINGE ONE (20:36)
[2019-04-14] MEDS ORDERED: ePHEDrine 50 MG/ML AMP ONE (20:36)
[2019-04-14] MEDS ORDERED: SEVOFLURANE 1 UNIT/15 MINUTE INH ONE (20:36)
[2019-04-14] MEDS ORDERED: ROCURONIUM 100 MG/10 ML VIAL IV ONE (20:37)
[2019-04-14] MEDS ORDERED: SODIUM CHLORIDE 0.9% 1,000 ML IV ONE (20:37)
[2019-04-14] MEDS ORDERED: MIDAZOLAM 2 MG/2 ML VIAL IV ONE (20:49)
[2019-04-14] MEDS ORDERED: SODIUM CHLORIDE 0.9% 2,000 ML IV ONE ×2 (20:51→23:53)
[2019-04-14 20:56] LABS: Anisocytosis 1+; Band Neutrophils 1 % (0-10); Eosinophils 1 % (0-10); Hypochromasia 1+; Lymphocytes 16 % (20-55); Microcytosis 1+; Ovalocytes 1+; Platelet Estimate Normal; Poikilocytosis 1+; Polychromasia Few; Segmented Neutrophils 67 % (50-85); Total Cells Counted 100
[2019-04-14 20:57] LABS: Tear Drop Cells 1+
[2019-04-14] MEDS ORDERED: FAMOTIDINE 20 MG/2 ML VIAL IV SCH (21:00)
[2019-04-14] MEDS: metroNIDAZOLE INJ 500 MG in PREMIX 1 EACH IV SCH (21:35)
[2019-04-14] MEDS: MEROPENEM 500 MG in SODIUM CHLORIDE 0.9% 100 ML IV SCH (21:35)
[2019-04-14] MEDS: SODIUM CHLORIDE 0.9% 1,000 ML IV SCH (21:37)
[2019-04-14 22:17] LABS: Hematocrit 29.2 VOL% (35.7-47.0); Hemoglobin 9.2 GM/DL (12.0-16.0)
[2019-04-15] MEDS: PROPOFOL 1,000 MG/100 ML BOTTLE IV SCH ×2 (00:24)
[2019-04-15] MEDS: MORPHINE 4 MG/1 ML VIAL IV PRN ×3 (00:24→07:47)
[2019-04-15 00:45] LABS: Basophils # 0.6 10*3/uL (0.0-0.2); Basophils % 2.2 % (0.0-0.8); Eosinophils # 0.2 10*3/uL (0.0-0.87); Eosinophils % 0.6 % (0.00-10.9); Hemoglobin 8.9 GM/DL (12.0-16.0); Immature Granulocytes % 16.6 %; Immature Granulocytes Absolute 4.48 #; Lymphocytes # 2.3 10*3/uL (1.4-4.0); Lymphocytes % 8.5 % (21.3-54.2); Mean Corpuscular HGB Conc 31.8 GM/DL (32-36); Mean Corpuscular Volume 91.2 FL (87-102); Mean Platelet Volume 13.2 FL (9.6-12.0); Monocytes % 13.4 % (1.7-12.7); NRBC # 3.89 10*3/uL; Neutrophils % 58.7 % (38.7-73.9); Platelet Count 287 T/CUMM (130-400); Red Blood Count 3.07 MC/CUMM (3.8-5.5); Red Cell Distribution Width 17.6 % (9.3-17.3)
[2019-04-15] MEDS ORDERED: SODIUM CHLORIDE 0.9% 1,000 ML IV PRN ×2 (00:50→13:10)
[2019-04-15] MEDS ORDERED: PROTHROMBIN COMPLEX IV ONE (00:50)
[2019-04-15 01:03] LABS: INR 1.6; PT Patient Result 16.9 SECS
[2019-04-15 01:04] LABS: Partial Thromboplastin Time 41.3 SECS (0-40)
[2019-04-15 01:37] LABS: Anisocytosis 2+; Band Neutrophils 20 % (0-10); Eosinophils 2 % (0-10); Hypochromasia 1+; Lymphocytes 15 % (20-55); Metamyelocytes 5 %; Microcytosis 1+; Myelocytes 1 %; Nucleated Red Blood Cells 20 (0-5); Promyelocytes 1 %; Segmented Neutrophils 49 % (50-85); Smudge Cells Few; Total Cells Counted 100
[2019-04-15 01:38] LABS: Burr Cells 1+; Macrocytosis 1+; Ovalocytes 1+; Polychromasia 1+
[2019-04-15 01:39] LABS: Platelet Estimate Adequate
[2019-04-15 02:54] LABS: ABG Base Excess -18.6 MMOL/L (-2.5-2.5); ABG HCO3 10.6 MMOL/L (20-26); ABG Oxygen Saturation 99.6 % (95-100); ABG PCO2 25.1 MM HG (35-48); ABG TCO2 8.5 MMOL/L (23-27)
[2019-04-15 02:59] LABS: ABG PH 7.162 (7.35-7.45); Basophils # 0.7 10*3/uL (0.0-0.2); Basophils % 2.1 % (0.0-0.8); Eosinophils # 0.2 10*3/uL (0.0-0.87); Eosinophils % 0.6 % (0.00-10.9); Hematocrit 28.9 VOL% (35.7-47.0); Immature Granulocytes % 16.9 %; Immature Granulocytes Absolute 5.48 #; Lymphocytes # 3.7 10*3/uL (1.4-4.0); Lymphocytes % 11.5 % (21.3-54.2); Mean Corpuscular HGB Conc 31.1 GM/DL (32-36); Mean Corpuscular Volume 92.3 FL (87-102); Mean Platelet Volume 12.9 FL (9.6-12.0); Monocytes % 12.8 % (1.7-12.7); NRBC # 5.58 10*3/uL; Neutrophils % 56.1 % (38.7-73.9); Platelet Count 314 T/CUMM (130-400); Red Blood Count 3.13 MC/CUMM (3.8-5.5); Red Cell Distribution Width 18.5 % (9.3-17.3); White Blood Count 32.4 T/CUMM (4-12)
[2019-04-15] MEDS: metroNIDAZOLE INJ 500 MG in PREMIX 1 EACH IV SCH ×2 (02:59→09:08)
[2019-04-15 03:22] LABS: Albumin 1.9 G/DL (3.4-5.0); Bilirubin,Total 3.1 MG/DL (0.2-1.0); Calcium 8.1 MG/DL (8.5-10.1); Osmolality,Calculated 301.5 MOS/KG (273-304); Total Protein 3.8 G/DL (6.4-8.3)
[2019-04-15 03:23] LABS: Troponin I 0.062 NG/ML (0.00-0.045)
[2019-04-15 03:26] LABS: INR 1.3; PT Patient Result 14.3 SECS
[2019-04-15 03:30] LABS: Partial Thromboplastin Time 44.5 SECS (0-40)
[2019-04-15] MEDS ORDERED: SODIUM BICARBONATE 50 MEQ/50 ML VIAL IV ONE ×3 (03:40→06:23)
[2019-04-15] MEDS ORDERED: ALBUMIN 5% 25 GM in PREMIX 1 EACH IV ONE (03:41)
[2019-04-15 04:02] LABS: Band Neutrophils 15 % (0-10); Eosinophils 2 % (0-10); Lymphocytes 15 % (20-55); Metamyelocytes 1 %; Myelocytes 5 %; Nucleated Red Blood Cells 34 (0-5); Segmented Neutrophils 53 % (50-85); Total Cells Counted 100
[2019-04-15 04:03] LABS: Anisocytosis 2+; Atypical Lymphocytes 1+; Hypochromasia 1+; Macrocytosis 1+; Microcytosis 1+; Ovalocytes 1+; Platelet Estimate Adequate; Polychromasia 1+
[2019-04-15] MEDS ORDERED: ALBUMIN 5% 12.5 GM in PREMIX 1 EACH IV ONE (05:33)
[2019-04-15] MEDS: NOREPINEPHRINE 16 MG in SODIUM CHLORIDE 0.9% 234 ML IV PRN ×2 (05:45→12:29)
[2019-04-15] MEDS: SODIUM CHLORIDE 0.9% 1,000 ML IV SCH (06:05)
[2019-04-15] MEDS: SODIUM BICARB INJ 150 MEQ in DEXTROSE 5% 850 ML IV SCH ×2 (06:17→12:45)
[2019-04-15 06:18] LABS: ABG Base Excess -17.3 MMOL/L (-2.5-2.5); ABG HCO3 11.1 MMOL/L (20-26); ABG Oxygen Saturation 99.1 % (95-100); ABG PCO2 26.9 MM HG (35-48); ABG TCO2 9.7 MMOL/L (23-27)
[2019-04-15 06:23] LABS: ABG PH 7.176 (7.35-7.45)
[2019-04-15] MEDS ORDERED: SODIUM CHLORIDE 0.9% 1,000 ML IV ONE (07:31)
[2019-04-15] MEDS ORDERED: LEVOFLOXACIN INJ 750 MG in PREMIX 1 EACH IV ONE (08:00)
[2019-04-15] MEDS: MEROPENEM 500 MG in SODIUM CHLORIDE 0.9% 100 ML IV SCH (09:08)
[2019-04-15] MEDS ORDERED: MORPHINE 4 MG/1 ML VIAL IV ONE (09:17)
[2019-04-15] MEDS ORDERED: PHENYLEPHRINE DRIP 40 MG/250 ML PREMIX IV ONE (09:27)
[2019-04-15] MEDS ORDERED: PHENYLEPHRINE 50 MG/5 ML VIAL IV ONE (09:37)
[2019-04-15] MEDS: PHENYLEPHRINE DRIP 40 MG/250 ML PREMIX IV PRN ×2 (09:40→13:42)
[2019-04-15 11:50] LABS: Basophils # 0.2 10*3/uL (0.0-0.2); Basophils % 0.8 % (0.0-0.8); Eosinophils # 0.1 10*3/uL (0.0-0.87); Eosinophils % 0.3 % (0.00-10.9); Hematocrit 18.3 VOL% (35.7-47.0); Immature Granulocytes Absolute 2.93 #; Lymphocytes # 1.7 10*3/uL (1.4-4.0); Lymphocytes % 7.4 % (21.3-54.2); Mean Corpuscular HGB Conc 31.7 GM/DL (32-36); Mean Corpuscular Volume 93.8 FL (87-102); Mean Platelet Volume 13.3 FL (9.6-12.0); Monocytes % 16.3 % (1.7-12.7); Neutrophils % 62.2 % (38.7-73.9); Red Cell Distribution Width 18.8 % (9.3-17.3); White Blood Count 22.5 T/CUMM (4-12)
[2019-04-15 11:55] LABS: Hemoglobin 5.8 GM/DL (12.0-16.0); Platelet Count 161 T/CUMM (130-400); Red Blood Count 1.95 MC/CUMM (3.8-5.5)
[2019-04-15 12:03] LABS: INR 2.7
[2019-04-15 12:08] LABS: ABG Base Excess -18.3 MMOL/L (-2.5-2.5); ABG HCO3 10.3 MMOL/L (20-26); ABG PCO2 29.4 MM HG (35-48); ABG TCO2 9.6 MMOL/L (23-27)
[2019-04-15 12:09] LABS: PT Patient Result 29.3 SECS; Partial Thromboplastin Time 63.7 SECS (0-40)
[2019-04-15 12:10] LABS: ABG PH 7.124 (7.35-7.45)
[2019-04-15 12:15] LABS: Albumin 2.1 G/DL (3.4-5.0); Bilirubin,Total 3.3 MG/DL (0.2-1.0); Calcium 7.3 MG/DL (8.5-10.1); Osmolality,Calculated 304.8 MOS/KG (273-304); Total Protein 3.5 G/DL (6.4-8.3)
[2019-04-15] MEDS ORDERED: HYDROCORTISONE 100 MG VIAL IV SCH (12:30)
[2019-04-15 12:56] LABS: Anisocytosis 1+; Band Neutrophils 7 % (0-10); Eosinophils 1 % (0-10); Lymphocytes 12 % (20-55); Metamyelocytes 2 %; Microcytosis 1+; Myelocytes 2 %; Nucleated Red Blood Cells 48 (0-5); Poikilocytosis 1+; Promyelocytes 2 %; Segmented Neutrophils 67 % (50-85); Total Cells Counted 100
[2019-04-15 12:57] LABS: Ovalocytes Slight; Polychromasia Slight
[2019-04-15 12:58] LABS: Atypical Lymphocytes Few; Giant Platelets Few; Platelet Estimate Adequate; Tear Drop Cells Slight
[2019-04-15] MEDS ORDERED: DEXTROSE 10% 250 ML IV PRN (13:16)
[2019-04-15 16:25] VITALS: BP 40/27
[2019-04-17] MEDS ORDERED: LEVOFLOXACIN INJ 500 MG in PREMIX 1 EACH IV SCH (09:00)
== END 2019-04-15 15:00 | disposition expired | DRG 853 ==
LOC: EDBD → EDUNIT# → N.ED 14:25 → N.ICU 17:18
PROVIDERS: ADMIT Internal Medicine; ATTEND Internal Medicine